=== PATIENT | male | born 1965 | race Caucasian/White ===

== ENCOUNTER 2022-11-19 00:13 | Emergency (ER) | payer BC, SELFPAY ==
[2022-11-19] VITALS (27 sets, daily range): BP systolic 94–158; BP diastolic 50–117; PULSE 70–138; RESP 13–42; TEMP 36.4–36.6; O2SAT 96–100; BMI 41.0
[2022-11-19] MEDS: SODIUM CHLORIDE 0.9% 1,000 ML 1000 ML IV (00:25)
[2022-11-19] MEDS: FAMOTIDINE 20 MG/2 ML VIAL IV (00:25)
[2022-11-19] MEDS: methylPREDNISolone 125 MG/2 ML VIAL IV (00:26)
[2022-11-19 00:31] LABS: INR 1.2 (0.9-1.3); Prothrombin Time 14.1 SECONDS (10.1-12.7)
[2022-11-19 00:34] LABS: PTT Partial Thromboplastin Tim 25 SECONDS (26-36)
[2022-11-19 00:38] LABS: Alanine Aminotransferase 18 IU/L (<50); Albumin 4.4 g/dL (3.5-5.0); Albumin Globulin Ratio 1.7 (1.0-2.8); Alkaline Phosphatase 52 U/L (38-126); Aspartate Aminotransferase 20 IU/L (17-59); BUN Creatinine Ratio 12.8 (6-22); Bilirubin Total 0.9 mg/dL (0.2-1.3); Blood Urea Nitrogen 14 mg/dL (9-20); Calcium 9.3 mg/dL (8.4-10.2); Carbon Dioxide 19 mmol/L (22-32); Chloride 101 mmol/L (98-107); Creatine Kinase 67 U/L (55-170); Estimated Glomerular Filt Rate > 60 mL/min (>60); Globulin 2.6 g/dL (1.7-4.1); Glucose 133 mg/dL (70-100); HEMOLYSIS < 15 (0-50); Magnesium 1.5 mg/dL (1.6-2.3); Potassium 3.9 mmol/L (3.4-5.1); Sodium 136 mmol/L (137-145)
[2022-11-19 00:39] LABS: Add Manual Diff / Slide Review NO; Basophils Absolute Auto 0 /uL (0-100); Basophils Percent Auto 0.4 % (0-2); Eosinophils Absolute Auto 100 /uL (0-450); Eosinophils Percent Auto 1.6 % (2-4); Hematocrit 45.8 % (41-53); Hemoglobin 15.1 g/dL (13.5-17.5); Lymphocytes Absolute Auto 2000 /uL (1100-4500); Lymphocytes Percent Auto 27.8 % (25-40); Mean Corpuscular Hemoglobin 27.1 PG (26-34); Mean Corpuscular Volume 82.1 fL (80-100); Monocytes Absolute Auto 400 /uL (0-900); Neutrophils Absolute Auto 4800 /uL (1500-7000); Neutrophils Percent Auto 65.2 % (50-75); Platelet Count 336 X10^3/uL (150-400); Red Blood Cell Count 5.58 X10^6/uL (4.5-5.9); Red Cell Distribution Width 17.2 % (11.6-14.8); White Blood Cell Count 7.3 X10^3/uL (4.5-11.0)
[2022-11-19 00:49] LABS: NT-proBNP (BNP-Adult 18+) 829 pg/mL (<125); Troponin I < 0.012 ng/mL (0.01-0.034)
--- NOTE | 2022-11-19 01:18 | ED.ALLEREA ---
HPI - Allergic Reaction General Chief complaint: Allergic Reaction Stated complaint: anaphalaxyis - allergic reaction? Syncope tonight Time Seen by Provider: 11/19/22 00:19 Source: patient and EMS Mode of arrival: EMS History of Present Illness HPI narrative: 56M former smoker with a history of prior anaphylactic reactions and atrial fibrillation presents by EMS for evaluation a presumed anaphylactic reaction. Last night he was likely exposed to avocado which is 1 of his primary triggers and he subsequently developed rash, wheezing, and some sensation of possible diarrhea and symptoms eventually passed without significant or specific intervention. He woke up today and was a bit out of sorts and forgot to take medications per his normal routine. He was working at the [employer] and started feeling swelling of his face and throat and developed a widespread pruritic rash. He denies any obvious exposure today and specifically states he had no new food or drink. He started feeling dizzy, weak, and lightheaded along with the development of blurred vision. He called for help and his work friends were able to get to him and ease him to the floor when he had a presumed syncopal or presyncopal episode. There was no injury suffered as a consequence. EMS was activated and when they arrived they found the patient had been placed on a few L of oxygen by nasal cannula and was seated with his feet up. Their initial blood pressure found him in the 60s. They noticed he had developed significant facial and eyelid swelling. Epinephrine 0.3 mg IM was given, IV was placed, fluids administered along with diphenhydramine 50 mg. By his arrival he was looking and feeling much better but his AFib had been triggered and heart rates were anywhere between 100-140s. By his arrival all of the facial swelling had resolved, patient no longer has any scratching or fullness in his throat, blood pressure improved to the 110s Related Data Home Medications Medication Instructions Recorded Confirmed AMINOBENZOIC ACID/BIOTIN/CA (#B 1 cap PO Q DAY ##0 05/17/12 01/27/21 COMPLEX) Fish Oil (#EPA FISH OIL) 1,000 mg PO Q DAY ##0 05/17/12 01/27/21 Glucosamine Sulfate (GLUCOSAMINE) 500 mg PO Q DAY ##0 05/17/12 01/27/21 Previous Rx's Medication Instructions Recorded SERTRALINE HCL (Sertraline HCl) 100 mg PO QDAY ##90 07/13/12 epinephrine 0.3 mg/0.3 mL 0.3 mg (0.3 mL) IM Q5-15M PRN 11/19/22 injection, auto-injector (EpiPen anaphylaxis #2 ea 2-Korey) prednisone 20 mg tablet 20 mg PO DAILY #5 tabs 11/19/22 Allergies Allergy/AdvReac Type Severity Reaction Status Date / Time avocado Allergy Severe Anaphylaxis Verified 11/19/22 00:17 Latex, Natural Rubber Allergy Severe Anaphylaxis Verified 11/19/22 00:40 oxycodone [OXYCODONE] Allergy Severe HIVES Verified 01/27/21 10:49 Review of Systems Review of Systems Narrative: GENERAL: See HPI HEENT: See HPI RESPIRATORY: See HPI CARDIOVASCULAR: See HPI GASTROINTESTINAL: Denies nausea, vomiting, abdominal pain, diarrhea, constipation, melena. : Denies dysuria, frequency, incontinence, hematuria, urinary retention. MUSCULOSKELETAL: denies weakness, joint pain, or bony pain SKIN: see HPI NEUROLOGIC: Denies weakness, headache, numbness, change in speech, confusion, seizures, incoordination. PSYCHIATRIC: No concerning psychosocial issues. 12 point review of systems is negative except for those stated above Patient History Medical History History of nephrolithiasis Right nephrolithiasis Solitary pulmonary nodule present on computed tomography of lung Social History Smoking Status: Former smoker Smoking Status: Former smoker Substance Use Type: does not use Exam Narrative Exam Narrative: GENERAL: [56] year old patient appears stated age. Well-developed patient, in mild distress. HEAD: Atraumatic. Normocephalic. EYES: Pupils equal round and reactive. Extraocular motions intact. No scleral icterus. No injection or drainage. ENT: No swelling of face, eyelids, tongue, lips, throat Nose without bleeding, purulent drainage. Throat without erythema, tonsillar hypertrophy or exudate. Airway patent. NECK: Trachea midline. Non tender CARDIOVASCULAR: Slightly tachycardic and irregular rhythm without murmurs, gallops, or rubs. RESPIRATORY: Clear to auscultation. Breath sounds equal bilaterally. No wheezes, rales, or rhonchi. GASTROINTESTINAL: Abdomen soft, non-tender, nondistended. EXTREMITIES: No edema or joint tenderness. BACK: Nontender without deformity or crepitance. No flank tenderness. NEURO: AOx3. SKIN: No rash or erythema of visible areas Initial Vital Signs Initial Vital Signs: Vital Signs Temperature 97.8 F 11/19/22 00:17 Pulse Rate 138 H 11/19/22 00:17 Respiratory Rate 15 11/19/22 00:17 Blood Pressure 116/62 11/19/22 00:17 Pulse Oximetry 100 11/19/22 00:17 Oxygen Delivery Method Room Air 11/19/22 00:17 Course Orders Ordered: ED Orders 11/19/22 00:13 Complete Blood Count AUTO DIFF Stat Comprehensive Metabolic Panel Stat Magnesium Stat NT-proBNP (BNP-Adult 18+) Stat PTT Partial Thromboplastin [place] Stat Prothrombin Time INR Stat Troponin & CK Cardiac Panel Stat 11/19/22 00:21 EKG-12 Lead Stat Discontinued Medications Famotidine (Famotidine 20 Mg/2 Ml Vial) 20 mg IV NOW DAPHNEY Last Admin: 11/19/22 00:25 Dose: 20 mg Documented By: SUKI Sodium Chloride (Normal Saline 0.9%) 1,000 mls @ 1,000 mls/hr IV BOLUS ONE Stop: 11/19/22 01:19 Last Infusion: 11/19/22 01:31 Dose: 0 mls/hr Documented By: Admin: 11/19/22 00:25 Dose: 1,000 mls/hr Documented By: SUKI Methylprednisolone (Methylprednisolone 125 Mg/2 Ml Vial) 125 mg IV NOW ONE Stop: 11/19/22 00:21 Last Admin: 11/19/22 00:26 Dose: 125 mg Documented By: SUKI Reevaluation(s) Reevaluation #1: patient continues to rest comfortably, no ongoing symptoms Time: 04:04 Vital Signs Vital signs: Vital Signs - 8 hr 11/19/22 00:17 11/19/22 00:24 11/19/22 00:25 Temperature 97.8 F Pulse Rate 138 H 120 H Respiratory Rate 15 22 Blood Pressure 116/62 115/67 Pulse Oximetry 100 100 Oxygen Delivery Method Room Air 11/19/22 00:25 11/19/22 00:30 11/19/22 00:31 Temperature Pulse Rate 127 H 122 H Respiratory Rate 18 42 H Blood Pressure 152/117 H Pulse Oximetry 100 100 Oxygen Delivery Method 11/19/22 00:31 11/19/22 00:36 11/19/22 00:36 Temperature Pulse Rate 132 H 130 H Respiratory Rate 34 H 15 Blood Pressure 147/114 H Pulse Oximetry 97 100 Oxygen Delivery Method Room Air 11/19/22 00:41 11/19/22 00:41 11/19/22 00:46 Temperature Pulse Rate 98 H Respiratory Rate 14 Blood Pressure 158/67 H 130/63 Pulse Oximetry 100 Oxygen Delivery Method 11/19/22 00:46 11/19/22 00:50 11/19/22 00:50 Temperature Pulse Rate 94 H 88 Respiratory Rate 18 13 Blood Pressure 113/56 L Pulse Oximetry 99 100 Oxygen Delivery Method 11/19/22 00:55 11/19/22 00:55 11/19/22 01:00 Temperature Pulse Rate 88 Respiratory Rate 14 Blood Pressure 130/70 137/76 Pulse Oximetry 100 Oxygen Delivery Method 11/19/22 01:00 11/19/22 01:05 11/19/22 01:05 Temperature Pulse Rate 94 H 90 Respiratory Rate 21 20 Blood Pressure 126/70 Pulse Oximetry 98 100 Oxygen Delivery Method 11/19/22 01:10 11/19/22 01:10 11/19/22 01:15 Temperature Pulse Rate 86 Respiratory Rate 16 Blood Pressure 119/78 122/75 Pulse Oximetry 100 Oxygen Delivery Method 11/19/22 01:15 11/19/22 01:20 11/19/22 01:20 Temperature Pulse Rate 86 83 Respiratory Rate 15 16 Blood Pressure 124/73 Pulse Oximetry 100 99 Oxygen Delivery Method 11/19/22 01:25 11/19/22 01:25 11/19/22 01:29 Temperature Pulse Rate 87 Respiratory Rate 15 Blood Pressure 116/66 125/68 Pulse Oximetry 98 Oxygen Delivery Method 11/19/22 01:29 11/19/22 01:30 11/19/22 01:30 Temperature Pulse Rate 91 H 88 Respiratory Rate 16 15 Blood Pressure 124/69 Pulse Oximetry 98 98 Oxygen Delivery Method 11/19/22 02:00 11/19/22 02:00 11/19/22 02:22 Temperature Pulse Rate 88 100 H Respiratory Rate 17 17 Blood Pressure 111/74 Pulse Oximetry 98 98 Oxygen Delivery Method 11/19/22 02:22 11/19/22 02:30 11/19/22 02:30 Temperature Pulse Rate 85 Respiratory Rate 16 Blood Pressure 114/53 L 105/58 L Pulse Oximetry 98 Oxygen Delivery Method 11/19/22 03:00 11/19/22 03:00 11/19/22 03:30 Temperature Pulse Rate 85 Respiratory Rate 17 Blood Pressure 101/62 94/50 L Pulse Oximetry 97 Oxygen Delivery Method 11/19/22 03:30 11/19/22 04:00 11/19/22 04:00 Temperature Pulse Rate 82 81 Respiratory Rate 16 17 Blood Pressure 106/71 Pulse Oximetry 96 96 Oxygen Delivery Method 11/19/22 04:30 11/19/22 04:30 11/19/22 05:00 Temperature Pulse Rate 86 Respiratory Rate 15 Blood Pressure 101/62 99/65 Pulse Oximetry 96 Oxygen Delivery Method 11/19/22 05:00 11/19/22 05:20 Temperature 97.6 F Pulse Rate 93 H 70 Respiratory Rate 16 16 Blood Pressure 104/66 Pulse Oximetry 97 96 Oxygen Delivery Method Room Air MDM - Allergic Reaction Lab Data 11/19/22 00:13 11/19/22 00:13 Labs: Lab Results 11/19/22 11/19/22 11/19/22 Range/Units 00:13 00:13 00:13 WBC 7.3 (4.5-11.0) X10^3/uL RBC 5.58 (4.5-5.9) X10^6/uL Hgb 15.1 (13.5-17.5) g/dL Hct 45.8 (41-53) % MCV 82.1 (80-100) fL MCH 27.1 (26-34) PG MCHC 33.0 (30-36) % RDW 17.2 H (11.6-14.8) % Plt Count 336 (150-400) X10^3/uL Neut % (Auto) 65.2 (50-75) % Lymph % (Auto) 27.8 (25-40) % Whitfield % (Auto) 5.0 (3-14) % Eos % (Auto) 1.6 L (2-4) % Baso % (Auto) 0.4 (0-2) % Neut # (Auto) 4800 (0013-4085) /uL Lymph # (Auto) 2000 (3337-8264) /uL Whitfield # (Auto) 400 (0-900) /uL Eos # (Auto) 100 (0-450) /uL Baso # (Auto) 0 (0-100) /uL PT 14.1 H (10.1-12.7) SECONDS INR 1.2 (0.9-1.3) APTT 25 L (26-36) SECONDS Sodium 136 L (137-145) mmol/L Potassium 3.9 (3.4-5.1) mmol/L Chloride 101 (98-107) mmol/L Carbon Dioxide 19 L (22-32) mmol/L BUN 14 (9-20) mg/dL Creatinine 1.09 (0.66-1.25) mg/dL Estimated GFR > 60 (>60) mL/min BUN/Creatinine Ratio 12.8 (6-22) Glucose 133 H (70-100) mg/dL Calcium 9.3 (8.4-10.2) mg/dL Magnesium 1.5 L (1.6-2.3) mg/dL Total Bilirubin 0.9 (0.2-1.3) mg/dL AST 20 (17-59) IU/L ALT 18 (<50) IU/L Alkaline Phosphatase 52 (38-126) U/L Total Creatine Kinase (55-170) U/L CK-MB (CK-2) CK-MB (CK-2) Rel Index Troponin I (0.01-0.034) ng/mL NT-Pro-B Natriuret Pep (<125) pg/mL Total Protein 7.0 (6.3-8.2) g/dL Albumin 4.4 (3.5-5.0) g/dL Globulin 2.6 (1.7-4.1) g/dL Albumin/Globulin Ratio 1.7 (1.0-2.8) 11/19/22 Range/Units 00:13 WBC (4.5-11.0) X10^3/uL RBC (4.5-5.9) X10^6/uL Hgb (13.5-17.5) g/dL Hct (41-53) % MCV (80-100) fL MCH (26-34) PG MCHC (30-36) % RDW (11.6-14.8) % Plt Count (150-400) X10^3/uL Neut % (Auto) (50-75) % Lymph % (Auto) (25-40) % Whitfield % (Auto) (3-14) % Eos % (Auto) (2-4) % Baso % (Auto) (0-2) % Neut # (Auto) (9173-7940) /uL Lymph # (Auto) (9968-7999) /uL Whitfield # (Auto) (0-900) /uL Eos # (Auto) (0-450) /uL Baso # (Auto) (0-100) /uL PT (10.1-12.7) SECONDS INR (0.9-1.3) APTT (26-36) SECONDS Sodium (137-145) mmol/L Potassium (3.4-5.1) mmol/L Chloride (98-107) mmol/L Carbon Dioxide (22-32) mmol/L BUN (9-20) mg/dL Creatinine (0.66-1.25) mg/dL Estimated GFR (>60) mL/min BUN/Creatinine Ratio (6-22) Glucose (70-100) mg/dL Calcium (8.4-10.2) mg/dL Magnesium (1.6-2.3) mg/dL Total Bilirubin (0.2-1.3) mg/dL AST (17-59) IU/L ALT (<50) IU/L Alkaline Phosphatase (38-126) U/L Total Creatine Kinase 67 (55-170) U/L CK-MB (CK-2) TNP CK-MB (CK-2) Rel Index TNP Troponin I < 0.012 (0.01-0.034) ng/mL NT-Pro-B Natriuret Pep 829 H (<125) pg/mL Total Protein (6.3-8.2) g/dL Albumin (3.5-5.0) g/dL Globulin (1.7-4.1) g/dL Albumin/Globulin Ratio (1.0-2.8) Urine Dip Bedside Urine Glucose Negative Bedside Urine Bilirubin - Negative Bedside Urine Ketone +++ 80 Urine Specific [place] 1.015 Bedside Urine Occult Blood - Negative Bedside Urine pH 6.0 Bedside Urine Protein - Negative Bedside Urine Urobilinogen - Negative Bedside Urine Nitrite - Negative Bedside Urine Leukocytes - Negative Esterase MDM Narrative Medical decision making narrative: CC: 56-year-old male with anaphylactic reactions Complicating co-morbidities: atrial fibrillation Data collected from: Patient Medical records reviewed: Prior notes reviewed in our EMR Differential considered, but not limited to: anaphylaxis vs. syncope vs. other Exam documented above, pertinent findings include: Patient awake, alert and oriented, no facial swelling, no increased work of breathing, no rash, in atrial fibrillation on arrival Lab Test results independently reviewed as above. Pertinent findings: No significant abnormal lab findings will require specific intervention Independently reviewed EKG as above Treatments: Epinephrine, normal saline, Solu-Medrol, H1 dileep, H2 dileep Re-evaluations: Patient doing quite well without evidence of respiratory distress, facial swelling, rash or other Discussion: Patient had rather impressive allergic reaction to an unknown trigger, initially requiring epinephrine, observed for many hours in the emergency department without recurrence. Disposition: see below, along with detailed discharge instructions that have been reviewed with patient as well as indications for ED re-evaluation and additional outpatient follow up Discharge Plan Departure Patient Disposition: Home Clinical Impression: Anaphylaxis, Atrial fibrillation Instructions: DI for Anaphylaxis Activity Restrictions/Additional Instructions: *You have been diagnosed with [allergic reaction] *What to do: *Please continue to take your regular medications as directed. [ x] New medication prescriptions sent to your pharmacy: [ [facility] in [place]] [ ] New medication written as a paper prescription [ ] No new medications given *Please consider the routine use of over the counter antihistamines over the next few days 1. H1 blockers: Benadryl (Diphenhydramine), Zyrtec (Cetirizine), Adriana (Fexofenadine) or Claritin (Loratadine) along with, 2. H2 blockers: Famotidine or Cimetidine *If you can please avoid what triggered your reaction today *Please follow up with your primary care provider in 2-3 days, call for an appointment. Let them know you were seen in the Emergency Department and that we ask that you be seen in follow up. We will electronically transmit a record of today's note if your PCP is in our system *If you do not have a primary care provider please contact the [facility] Resource line at [phone]. They will ask some questions about your medical history and help get you set up with a doctor in the community. *Return to Emergency Department if you should have any new, worsening or concerning symptoms, such as swelling of tongue, throat, trouble breathing, or other concerning symptoms Prescriptions: New prednisone 20 mg tablet 20 mg PO DAILY Qty: 5 0RF Rx Instructions: administer with food or milk epinephrine [EpiPen 2-Korey] 0.3 mg/0.3 mL auto-injector 0.3 mg IM Q5-15M PRN (Reason: anaphylaxis) Qty: 2 0RF Rx Instructions: do not exceed 3 doses per episode No Action AMINOBENZOIC ACID/BIOTIN/CA (#B COMPLEX) 1 cap PO Q DAY Qty: 0 Fish Oil (#EPA FISH OIL) 1,000 mg PO Q DAY Qty: 0 Glucosamine Sulfate (GLUCOSAMINE) 500 mg PO Q DAY Qty: 0 SERTRALINE HCL (Sertraline HCl) 100 mg PO QDAY Qty: 90 3RF Referrals: Chino Johnson [place] [Primary Care Provider] - Stand Alone Forms: Patient Portal/API
== END 2022-11-19 05:21 | disposition home or self-care (01) ==
PROVIDERS: Emergency Provider Emergency Medicine; PCP Naturopath
DX: R22.0 Localized swelling, mass and lump, head (principal); T78.04XA Anaphylactic reaction due to fruits and vegetables, initial encounter; I48.91 Unspecified atrial fibrillation
CPT/HCPCS: 36415; 80053; 81003; 82550; 83735; 83880; 84484; 85025; 85610; 85730; 93005; 93010; 96361; 96374; 96375; 99284; J2930